=== PATIENT | male | born 1965 | race Caucasian/White ===

== ENCOUNTER → 2017-12-14 | Outpatient (CLI) | payer OTHER ==
--- NOTE | 2017-12-14 16:16 | NM ---
EXAMINATION TYPE: NM bone scan whole body DATE OF EXAM: 12/14/2017 COMPARISON: NONE HISTORY: Right ankle and foot pain, left ankle and foot pain, left foot metatarsalgia, plantar fascia l fibromatosis, other acquired deformities of left foot, right foot pain, right foot metatarsalgia, o ther deformities of right foot all per order. History of healed stress fracture base of second metata rsal. Delayed whole-body scanning was performed following the injection of 24.6 mCi Tc 99m MDP. Images acq uired 3 hours post injection. Scanning is performed of the entire body occluding spot images of the t horax abdomen and upper pelvis in multiple projections in the bilateral ankles and feet FINDINGS: There is no suspicious sonographic uptake of the majority of body to suggest metastatic disease to avel ne or other significant abnormality in majority of body. There is foreshortening of left foot versus right foot without definitive amputation defect seen on l ateral images suggesting may be partly projectional. Area of increased uptake mid to distal medial as pect left foot near region of distal metatarsal second toe likely reflects history of healing stress fracture. Slightly more prominent more diffuse radiotracer uptake dorsal aspect central midfoot of l eft foot is noted should be correlated with plain films and/or MRI. IMPRESSION: As above
== END | disposition home or self-care (01) ==
LOC: RADNMMAIN 11:28
PROVIDERS: ATTEND Orthopaedic Surgery
DX: R94.8 Abnormal results of function studies of other organs and systems (principal); Z85.71 Personal history of Hodgkin lymphoma
CPT/HCPCS: 78306; A9503

== ENCOUNTER → 2021-05-22 | Outpatient (CLI) | payer OTHER ==
--- NOTE | 2021-05-22 09:07 | CT ---
EXAMINATION TYPE: CT lumbar spine wo con DATE OF EXAM: 05/22/2021 7:16 AM COMPARISON: None. HISTORY: low back pain, numbness down Lt leg for [address] DLP: 1080 mGycm Automated exposure control for dose reduction was used. Unenhanced CT of the lumbar spine was performed. Bone and soft tissue window settings are submitted as well as coronal and sagittal reconstructions. There are 5 lumbar-type vertebra. Alignment is straightened on sagittal images. [id number] disc space narrowing with vacuum disc phenomenon L5-S1 level. Mild disc space narrowing with moderate ant erior and lateral spurring at L1-L2 level. Axial images at T12-L1 level shows mild facet degenerative changes bilaterally. Axial images at L1-L2 level show mild/moderate broad disc bulge mildly effacing the anterior thecal s ac with [id number] facet arthropathy bilaterally. Patent bilateral neural foramina. Axial images at L2-L3 level show mild/moderate facet arthropathy bilaterally. There is mild/moderate broad-based posterior disc protrusion. There is mild bilateral inferior neural foraminal narrowing. Axial images at L3-L4 level show moderate broad-based posterior disc protrusion and mild/moderate fac et arthropathy bilaterally. There is mild effacement of the anterior thecal sac. There is mild right and moderate left-sided inferior neural foraminal narrowing. Axial images at L4-L5 level show mild facet arthropathy bilaterally. There is mild broad disc bulge m inimally effacing anterior thecal sac. There is mild/moderate bilateral neural foraminal narrowing. Axial images at L5-S1 level show moderate facet arthropathy bilaterally. There is mild/moderate broad -based posterior disc protrusion minimally effacing the anterior thecal sac with right paracentral co mponent axial image 71. There is severe left-sided neural foraminal narrowing with left foraminal and lateral component sagittal image 36 and axial image 69 effacing inferior margin of the left L5 nerve . There is moderate to severe right-sided neural foraminal narrowing. Paraspinal muscle bulk is preserved. Partial visualization of pacemaker/defibrillator device on local izer. IMPRESSION: Straightening lumbar spine with multilevel early mild to moderate degenerative changes as detailed above. Attention to the L5-S1 level where eccentric disc herniation encroaches exiting L5 n erve correlating with patient's symptoms.
== END | disposition home or self-care (01) ==
LOC: RADCTMAIN 06:59
PROVIDERS: ATTEND Orthopaedic Surgery Orthopaedic Surgery of the Spine
DX: M51.26 Other intervertebral disc displacement, lumbar region (principal); M51.36 Other intervertebral disc degeneration, lumbar region; M47.816 Spondylosis without myelopathy or radiculopathy, lumbar region
CPT/HCPCS: 72131